=== PATIENT | female | born 1995 | race Caucasian/White ===

== ENCOUNTER 2023-05-13 08:49 | Outpatient (CLI) | payer BC, SELFPAY | END 2023-05-13 08:50 | disposition home or self-care (01) | LOC: NFLDREF 08:51 | PROVIDERS: Visit Provider Advanced Practice Midwife | DX: O26.899 Other specified pregnancy related conditions, unspecified trimester (principal); Z67.91 Unspecified blood type, Rh negative | CPT/HCPCS: 86592; 86850; J2791 ==

== ENCOUNTER 2023-06-22 16:58 | Outpatient (CLI) | payer BC, SELFPAY ==
[2023-06-22] VITALS (8 sets, daily range): BP systolic 120–142; BP diastolic 68–91; PULSE 70–96; TEMP 36.6
[2023-06-22 17:38] LABS: Appearance Urine Clear (Clear); Bilirubin Urine Negative (Negative); Blood Urine Negative (Negative); Color Urine Yellow (Yellow); Glucose Urine Negative (Negative); Ketones Urine Negative (Negative); Leukocyte Esterase Urine Negative (Negative); Nitrite Urine Negative (Negative); Protein Urine Negative (Negative); Urobilinogen Urine 0.2 (0.2-1.0)
[2023-06-22 18:16] LABS: Clue Cells No Clue Cells Seen (None Seen); Trichomonas No Trichomonas Seen (None Seen); Yeast No Yeast Seen (None Seen)
--- NOTE | 2023-06-22 19:22 | PC.OBNST ---
NST Note NST Note Start: 06/22/23 17:54 Freq: ONCE Status: Active Protocol: Document 06/22/23 19:18 MMT (Rec: 06/22/23 19:22 MMT [id number]) NST Note 2 Para (# of births) 1 EDC 08/06/23 Gestational Age In Weeks & Days 33 Weeks & 4 Days High Risk Factors History of Labor/ Delivery Patient Presented with Complaint(s) of Contractions/cramping,Vaginal bleeding Other Complaints Pt came in to the OB unit for complaints of mild cramping from [id number]. The cramping went away with drinking fluids . When the pt got into the shower, she noted a light stream of reddish/brown blood . She stated she did not have any bleeding since then. Reactive Yes Appropriate for Gestational Age Yes JESSIKA Serrano Date 06/22/23 Reactive Yes Appropriate for Gestational Age Yes JESSIKA Hansen RN Date 06/22/23 OB NST charge Yes Complete NST Note via Write Note Yes The provider's electronic signature indicates the NST is reactive/appropriate for gestational age. *Note to provider: If an addendum is required, open the patient's chart and click on the note under the Nurse/Allied Health tab.
--- NOTE | 2023-06-22 19:29 | PM.OBLDTN ---
OB - Triage/Final Diagnosis Visit Information Narrative: Jenny is a that presented to triage for concern for a scant trickle of blood that ran down her leg when she was showering. She has not seen any additional bleeding since she exited the shower. She feels it was certainly vaginal. She denies any leaking of fluid and endorses movement. She reports she did have intercourse about 3 days ago. She denies any cramping or contractions but was having some earlier. This resolved with oral hydration. Reason for evaluation: other (Bleeding) Evaluation Laboratory results: Laboratory Tests 06/22/23 06/22/23 Range/Units 17:56 17:00 Urine Color Yellow (Yellow) Urine Appearance Clear (Clear) Urine pH 7.0 (5.0-8.5) Ur Specific [place] 1.010 (1.000-1.030) Urine Protein Negative (Negative) Urine Glucose (UA) Negative (Negative) Urine Ketones Negative (Negative) Urine Blood Negative (Negative) Urine Nitrite Negative (Negative) Urine Bilirubin Negative (Negative) Urine Urobilinogen 0.2 (0.2-1.0) Ur Leukocyte Esterase Negative (Negative) Vaginal Trichomonas No Trichomonas Seen (None Seen) Vaginal Yeast No Yeast Seen (None Seen) Vaginal Clue Cells No Clue Cells Seen (None Seen) Vital signs: Vital Signs - 24 hr 06/22/23 17:08 06/22/23 17:23 06/22/23 17:30 Temperature 97.8 F Pulse Rate 82 96 Blood Pressure 142/91 H 132/88 06/22/23 17:39 06/22/23 17:54 06/22/23 18:09 Temperature Pulse Rate 76 71 77 Blood Pressure 124/77 133/68 06/22/23 18:25 06/22/23 18:38 Temperature Pulse Rate 73 70 Blood Pressure 124/76 120/73 Fetus (Single) Heart Rate Baseline: 145 Communications Programmer Variability: Moderate (6-25) Monitor Accelerations: Present Monitor Decelerations: None Final Diagnosis (1) Spotting complicating , third trimester: Status: Acute Problem details: No bleeding by swab or reported by patient at time of evaluation. Wet prep and UA/UC collected. Negative wet prep and UA. Offered vaginal exam and/or speculum exam. Patient declined at this time. Reviewed risk/benefits of exam. Follow-up in clinic for routine visit. Seeing Korina Beltre CNM .
== END 2023-06-22 19:04 | disposition home or self-care (01) ==
LOC: OB OUT 16:59 → OB 17:00
PROVIDERS: Visit Provider Advanced Practice Midwife
DX: O47.03 False labor before 37 completed weeks of gestation, third trimester (principal); Z3A.33 33 weeks gestation of pregnancy
CPT/HCPCS: 59025; 81003; 87210; G0463

== ENCOUNTER 2023-06-24 11:17 | Outpatient (CLI) | payer BC, SELFPAY | END 2023-06-24 11:18 | disposition home or self-care (01) | LOC: NFLDREF 06-28 06:38 | PROVIDERS: Visit Provider Advanced Practice Midwife | DX: Z83.438 Family history of other disorder of lipoprotein metabolism and other lipidemia (principal); Z34.93 Encounter for supervision of normal pregnancy, unspecified, third trimester | CPT/HCPCS: 80061 ==

== ENCOUNTER 2023-07-08 09:45 | Outpatient (CLI) | payer BC, SELFPAY | END 2023-07-08 09:46 | disposition home or self-care (01) | LOC: NFLDREF 07-12 07:06 | PROVIDERS: Visit Provider Advanced Practice Midwife | DX: Z34.93 Encounter for supervision of normal pregnancy, unspecified, third trimester (principal) | CPT/HCPCS: 87081; 87653 ==

== ENCOUNTER 2023-07-22 21:40 | Inpatient (IN) | payer BC, SELFPAY ==
[2023-07-22] VITALS (13 sets, daily range): BP systolic 131–150; BP diastolic 72–104; PULSE 64–117; RESP 16; TEMP 36.8; O2SAT 98; BMI 27.8
[2023-07-22 19:57] LABS: Hematocrit 34.5 % (33.0-51.0); Hemoglobin* 11.8 gm/dL (12.0-16.0); Mean Corpuscular HGB Conc 34 gm/dL (32-36); Mean Corpuscular Hemoglobin 32 pg (26-34); Mean Corpuscular Volume 92 fL (80-100); Platelet Count* 206 K/uL (140-440); Red Blood Count 3.74 m/uL (4.00-5.20)
[2023-07-22 20:11] LABS: Slide Review Reflex No
[2023-07-22 20:21] LABS: Total Protein Urine 15 mg/dL
[2023-07-22 20:21] LABS: Alanine Aminotransferase* 15 U/L (4-35); Aspartate Amino Transferase* 24 U/L (12-35); Blood Urea Nitrogen* 8 mg/dL (5-24); Creatinine* 0.5 mg/dL (0.5-1.5); Estimated Glomerular Filt Rate 129 ml/min
[2023-07-22 20:23] LABS: Creatinine Urine 48.3 mg/dL
--- NOTE | 2023-07-22 21:57 | P.LDBA_ITS ---
Subjective History of Present Illness Narrative: Jenny is a at 37 6/7 weeks gestation being admitted to Labor and Delivery for induction of labor for pre-eclampsia without severe features diagnosed in triage this evening. She was seen earlier today in clinic and had an elevated BP with a repeat that was normotensive, however borderline abnormal. It was recommended she follow-up in clinic on Wednesday of next week for a BP check and monitor at home for symptoms of pre-eclampsia. She denies any symptoms of this today including headache, epigastric pain, n/v, or blurred vision. She did not desire to come to clinic Wednesday but was open to monitoring her BP at home. She reported feeling unwell this evening and decided to take her blood pressure at home. Her initial reading was 154/90. She called and was recommended to come in for further evaluation but desired to stay home and recheck. After 1 hour, it remained elevated and she was advised to come to Labor and Delivery for evaluation. She does not desire an IOL ands hoping to avoid pitocin. Her full history and physical was dictated by MARIUM Snow on 07/15/2023. Please see this for details. Specific Issues/Plans (last delivery in 2012) Chris escobar of care at 25.6 wks H & P done 07/15/23 by Laxmi Leal CNM 1. Hx of labor at 34 weeks per pt, delivered at 38 weeks records reviewed, no mention of PTL 2. Cardiology consult this for shortness of breath and palpitations Per records Echo reassuring and normal. No further f/u recommended. 3. Hx of asthma no inhaler takes allergy med daily 4. Hx of eating disorder [id number] anorexia/bulimia was in treatment [facility] program not currently an issue per pt offer growth in 3rd trimester- pt declines at this time 5. Anxiety enc therapy or medications, pt declines med, considering therapy referral sent- started therapy 6. Hx depression with hospitalization after suicide attempt 2008 pt did not report, noted in records Discussed with pt reports result of situational, eating disorder and medication side effects. 7. RH- Rhogam 28 wks: received Rhogam PP: 8. Elevated BP without diagnosis of HTN Will monitor at home, return if elevated or has concerns Recommended BP check in clinic Wednesday OB Labs: ? Blood type: O-, antibody screen negative. ? Hgb: 12.8 ? Platelets: 247 ? Rubella: Immune ? Varicella: no results in records RPR: non-reactive ? HBsAg: non-reactive ? Hep C: negative HIV: negative ? UC: negative GC/Chlamydia: negative/negative ? Pap (01/04/23): NIL ? Genetic screening: declined ? IMAGING: ? 1st trimester: none in records Anatomy scan: Complete obstetrical ultrasound using realtime transabdominal scanning Maternal uterus appears normal Maternal ovaries were not visualized bilaterally Corresponding menstrual and sonographic dates Placenta is right lateral with an area on the posterior aspect suggestive of an accessory lobe Amniotic fluid assessment is : Normal No gross anomalies observed anomalies may be present but not detected The placenta shape is favored to be a variant of normal, could consider level 2 ultrasound for further evaluation if desired. ? Others: Level 2 with MFM 1. Horn intrauterine at 20w0d gestational age by LMP c/2 7 weeks US here for evaluation of anatomy 2. No anomalies commonly detected by ultrasound or soft markers of aneuploidy were identified in the detailed anatomic survey within the limits of ultrasound. 3. Growth parameters and estimated weight were consistent with established dates 4. The amniotic fluid volume appeared normal 5. On transabdominal imaging the cervix appears long and closed 6. Placenta is anterior but extends laterally to have one edge that is posterior. On still images, this give the impression of an accessory lobe but this is not present on video clips or real time imaging. No placental abnormality concerns are identified at this time. COVID: declined Flu: declined TDAP: declined 32wk Mental Health: 34wk Hgb: OB - Problem Based A/P Additional Plan (1) Encounter for induction of labor: Status: Acute (2) 37 weeks gestation of : Status: Acute (3) Preeclampsia: Problem details: without SF. Labs WNL, p/c ratio 0.3 Status: Acute (4) Anxiety: Status: Acute (5) Hx of major depression: Problem details: with suicide attempt in 2008 Status: Acute Plan ASSESSMENT:? 30 at 37 6/7 weeks gestation? complicated by:?hx of labor, SOB during with cardiology workup without concern, hx of asthma, hx of eating disorder, anxiety, hx of depression with hospitalization after suicide attempt in 2008, Rh neg Labor type: Induced? Category 1 FHR pattern.?? Labor complicated by: Pre-eclampsia without severe features GBS negative? ? PLAN:? 1. Routine intrapartum cares as ordered. Discussed IOL and methods. She desires to avoid pitocin. 2. Monitoring per policy, continuous ? 3. Candidate for analgesia of choice if desired. 4. Patient encouraged to reposition and ambulate to promote physiologic labor and .? 5. Continue to monitor BP per protocol. Labs WNL, pc ratio 0.3. Dr. Mcneill was made aware of patient being evaluated in triage with possible need for admission. 6. Anticipate ? Delivery/Labor/Induction Plan Plan: induction Induction method: per misoprostol protocol OB Exam Physical Exam Vital signs: Temp Pulse Resp BP Pulse Ox 98.2 F 104 H 16 139/97 H 98 07/22/23 19:09 07/22/23 20:47 07/22/23 19:09 07/22/23 20:47 07/22/23 19:14 Narrative: Vitals Reviewed Constitutional:? Alert and oriented x3 HEENT:? Normocephalic, atraumatic Neck:? Supple Lungs:? Clear to auscultation bilaterally Heart:? Regular rate and rhythm, no murmur, rub or gallop Abdomen:? Soft, nontender, and gravid. Vertex by Tesfaye's, confirmed with cervical exam. Extremities:? No edema or erythema Cervix: Deferred, done today in clinic NST: 140 bpm/moderate variability/15x15 accelerations/no decelerations /contractions occasionally
[2023-07-22] MEDS: miSOPROStoL 25 MCG/0.25 TABLET PO (22:37)
[2023-07-23] VITALS (38 sets, daily range): BP systolic 115–191; BP diastolic 58–106; PULSE 68–118; RESP 18; TEMP 36.6–37.2; O2SAT 92–100
[2023-07-23] MEDS: CALCIUM CARBONATE 500 MG CHEW PO (01:12)
[2023-07-23] MEDS: hydrOXYzine pamoate 25 MG CAPSULE 100 MG PO (02:27)
[2023-07-23] MEDS: miSOPROStoL 25 MCG/0.25 TABLET PO ×2 (02:27→06:22)
--- NOTE | 2023-07-23 08:20 | PM.OBPNL ---
Subjective Time Seen by Provider: 08:00 Date Seen: 07/23/23 Narrative: Jenny has received 2 doses of Cytotec. she is only feeling cramping and denies painful contractions at this time. We discussed ways to encourage labor including position changes and miles circuit. She will have an IV placed after breakfast as she plans for an epidural. Will plan to collect repeat labs and a type and screen with this IV start. We discussed options for continuing induction if her contractions space out, are unable to place more Cytotec or need a need induction technique. We discussed options of Cervidil, cook catheter, AROM and Pitocin and risks and benefits of each were discussed. We discussed buccal vs vaginal Cytotec for her next dose. she is undecided which she prefers but will think about it and decided. Discussed in depth advantages and disadvantages of each. Will reevaluate when her next dose is due. Declines cervical exam at this time. Objective Vital Signs: Last Vital Signs Temp 97.9 F 07/23/23 07:40 Pulse 72 07/23/23 07:40 Resp 16 07/22/23 22:43 BP 132/81 07/23/23 07:40 Pulse Ox 98 07/22/23 19:14 Contractions Monitor mode: External Contraction Frequency: 2-4 min Contraction pattern: Regular Contraction intensity: Mild Assessment Assessment: induction ongoing Heart Rate Baseline: 140 Group Home Variability: Moderate (6-25) Monitor Accelerations: Present Monitor Decelerations: None Plan Plan: ASSESSMENT:? 30 at 38 0/7 weeks gestation? complicated by:?hx of labor, SOB during with cardiology workup without concern, hx of asthma, hx of eating disorder, anxiety, hx of depression with hospitalization after suicide attempt in 2008, Rh neg Labor type: Induced? Category 1 FHR pattern.?? Labor complicated by: Pre-eclampsia without severe features GBS negative? ? PLAN:? 1. Routine intrapartum cares as ordered. Discussed IOL and methods. She desires to avoid Pitocin. Will continue with Cytotec induction. 2. Monitoring per policy, continuous ? 3. Candidate for analgesia of choice if desired. Planning an epidural. 4. Patient encouraged to reposition and ambulate to promote physiologic labor and .? 5. Continue to monitor BP per protocol. Labs WNL. 6. Anticipate ?
[2023-07-23] MEDS: LACTATED RINGERS 1000 ML 1,000 ML IV (09:43)
[2023-07-23 09:50] LABS: Basophils Percent Auto 0.1 % (0.0-3.0); Eosinophils Percent Auto 1.4 % (0.0-7.0); Hematocrit 34.7 % (33.0-51.0); Immature Granulocytes Pct Auto 0.5 %; Lymphocytes Percent Auto 14.5 % (20-44); Mean Corpuscular HGB Conc 35 gm/dL (32-36); Mean Corpuscular Hemoglobin 32 pg (26-34); Mean Corpuscular Volume 92 fL (80-100); Monocytes Percent Auto 6.2 % (0.0-11.0); Neutrophils Percent Auto 77.3 % (42.0-72.0); Platelet Count* 209 K/uL (140-440); Red Blood Count 3.76 m/uL (4.00-5.20); White Blood Count* 11.03 K/uL (4.50-11.00)
[2023-07-23 09:54] LABS: Slide Review Reflex No
[2023-07-23] MEDS: fentaNYL 100 MCG/2 ML inj 50 MCG IVP (11:01)
[2023-07-23] MEDS: LACTATED RINGERS 1000 ML 1,000 ML 700 ML IV (11:06)
[2023-07-23] MEDS: ROPIVACAINE 0.2% 100 ml 100 ML 12 MG EPIDURAL (11:25)
[2023-07-23] MEDS: BUPIVACAINE 0.25% PF 10 ML 10 ML ML EPIDURAL (11:29)
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
--- NOTE | 2023-07-23 12:56 | W.PM.VAGDE_ITS ---
OB Procedure Vag Delivery Mother Details Mother Details: The patient is a 28 year-old, 2, Para 1, admitted on 07/22/23 at 38.0 Days gestation for IOL for Preeclampsia without severe features. She was given 3 doses of Cytotec. She had SROM which significantly increased her pain with contractions. Shortly after SROM she requested an epidural. She used hydrotherapy while waiting for IV fluid infusion for epidural placement. Her cervical exam was 3cm/90%/-1 immediately before epidural placement. After p lacement she was immediately uncomfortable and requested a cervical exam. She was then found to be complete and +2-3 station. She was prepared for pushing and began pushing shortly after this exam. She pushed effectively. : 2 Para: 2 Weeks Gestation: 38.0 Admission Date: 07/22/23 Additional Details Amniotic Membrane Status: SROM Amniotic Membrane Rupture Date: 07/23/23 Amniotic Membrane Rupture Time: 09:20 Amniotic Membrane Fluid Description: Clear Analgesia/Anesthesia Type: Epidural Waterbirth: No Pitcoin: No (declined AMTSL, expectant management, will consider if bleeding increases ) Intrapartal Events: Precipitous Labor <3 Hrs Induction Method: per misoprostol protocol Labor Onset: 09:20 (with SROM) Complete: 11:40 Pushin:48 Heart: heart tones during second stage were category 2. There were repetitive variable decelerations with contractions to the 100-70's. Maintained good variability and good return to baseline. Did try positions changes with minimal change. Delivery Details Delivery Date: 07/23/23 Delivery Time: 12:03 Route of delivery: Infant Gender: Male Viability: Alive; Heart Rate Present Position at Delivery: OA Delivery Details: Patient was admitted for IOL for preeclampsia without severe features and progressed with Cytotec induction and SROM. SROM noted at 0920 with clear fluid. Patient was complete at 1140 and pushing at 1148. of a viable male at 1203 in right tilt in the bed. Vertex delivered OA. No nuchal cord or shoulder but umbilical cord was in the babies hands at time of delivery. Body delivered easily and without incident. FOB helped delivery baby with hand over hand technique passed to mothers abdomen with a vigorous cry. Cord was clamped and cut at > 5 minutes. APGARS were 8 at one minute and 9 at five minutes respectively. Mouth was bulb suctioned. Intact placenta with a 3 vessel cord delivered spontaneously at 1213. Fundus firm. Superficial periurethral and perineal lacerations were identified and not requiring repair. QBL 200 cc. Mother and baby stable; mother plans to breastfeed. Infant weight 3015g.? 1 Minute Interval Total Score: 8 5 Minute Interval Total Score: 9 Additional Details Shoulder Dystocia: No Placenta Delivery Time: 12:13 Placental Delivery Description: Spontaneous Procedure Done: Global Blood Loss: 200 Laceration: Superficial (periurethral and perineal ) Episiotomy Description: None Blood Loss Measurement Type: QBL Bakri Used: No Sponge/Need Count Correct: Yes Cord Vessel Description: 3 Vessels (cord in hands at delivery ) Event Summary Status: Mother and infant were stable after delivery. Disposition: floor
[2023-07-23] MEDS: IBUPROFEN 600 MG TABLET PO ×2 (16:04→22:08)
[2023-07-23] MEDS: ACETAMINOPHEN 500 MG TABLET 1000 MG PO (19:39)
[2023-07-24] VITALS (7 sets, daily range): BP systolic 116–136; BP diastolic 72–92; PULSE 63–91; RESP 16–18; TEMP 36.4–37.1; O2SAT 96–97
[2023-07-24] MEDS: ACETAMINOPHEN 500 MG TABLET 1000 MG PO ×4 (01:31→23:09)
[2023-07-24] MEDS: IBUPROFEN 600 MG TABLET PO ×3 (04:09→20:35)
[2023-07-24 07:17] LABS: Hemoglobin* 10.6 gm/dL (12.0-16.0)
[2023-07-24] MEDS: DOCUSATE SODIUM 100 MG CAPSULE PO (07:36)
--- NOTE | 2023-07-24 09:29 | P.OBPN_ITS ---
OB - PN:Subj Subjective Time Seen by Provider: 09:00 Date Seen: 07/24/23 Interval history: pt seen in routine rounds. Is pumping and bottle feeding, supplementing with donor milk. Initial high bp after delivery 167/86, repeat 146/76. Overnight bp's 140/80-90 but this morning last two 125/76, 123/74. Has not received any bp meds. Reports voiding, ambulating, tolerating orals. No concerns. Patient comments OB post-: no complaints OB - PN: Obj Exam Physical Exam: Vital signs: Temp Pulse Resp BP Pulse Ox O2 Del Method 97.7 F 66 16 126/80 97 Room Air 07/24/23 07:38 07/24/23 07:38 07/24/23 07:38 07/24/23 07:38 07/24/23 07:38 07/24/23 07:38 Constitutional: Constitutional: no acute distress and cooperative Routine Abdominal Exam: Fundus: Present firm (below umbilicus) OB - PN: Obj Data Labs Labs: Laboratory Results - last 24 hr 07/23/23 07/24/23 09:36 06:55 WBC 11.03 H RBC 3.76 L Hgb 12.0 10.6 L Hct 34.7 MCV 92 MCH 32 MCHC 35 RDW Coeff of Jessica 13.0 Plt Count 209 Neut % (Auto) 77.3 H Lymph % (Auto) 14.5 L [place] % (Auto) 6.2 Eos % (Auto) 1.4 Baso % (Auto) 0.1 Neut # (Auto) 8.50 H Lymph # (Auto) 1.60 [place] # (Auto) 0.70 Eos # (Auto) 0.20 Baso # (Auto) 0.00 Abs Immat Gran (auto) 0.10 Imm/Tot Granulo (auto) 0.5 Blood Type O Negative Antibody Screen POSITIVE OB - PN: A/P Delivery Assessment and Plan (1) Encounter for induction of labor: Status: Acute (2) 37 weeks gestation of : Status: Acute (3) Preeclampsia: Problem details: without SF. Labs WNL, p/c ratio 0.3 Status: Acute Assessment and Plan: one bp in severe range after delivery, repeat below. preeclamptic labs wnl. discussed with pt, will monitor bp and if recurrently >/=140/90, will initial oral meds. Plan monitor for now. continue routine care otherwise (4) Anxiety: Status: Acute (5) Hx of major depression: Problem details: with suicide attempt in 2008 Status: Acute
--- NOTE | 2023-07-24 10:22 | P.OBPN_ITS ---
OB - PN:Subj Subjective Time Seen by Provider: 09:45 Date Seen: 07/24/23 Interval history: pt seen in routine rounds. Is pumping and bottle feeding, supplementing with donor milk. Initial high bp after delivery 167/86, repeat 146/76. Overnight bp's 140/80-90 but this morning last two 125/76, 123/74. Has not received any bp meds. Reports voiding, ambulating, tolerating orals. No concerns. Patient comments OB post-: no complaints, pain well controlled, tolerating diet and flatus present infant status: (working on latching) and doing well Lynndyl feeding status: exclusively Narrative: The patient feels well.? The pain is well controlled with current medications.? She has no new complaints.? Urinary output is adequate and she is voiding without difficulty.? Has a good appetite, is tolerating a general diet, is passing flatus, and has not had a bowel movement.? Has small amount of rubra lochia.? She is ambulating well.?Blood pressures have been 116-126/70-80's this am but did have elevated BPs of 140-150's yesterday evening. Denies symptoms. Initially wanted to discharged after 24 hours but encouraged her to stay due to these higher blood pressures and an increased risk of readmission. She is also working on latching as baby is struggling. She is agreeable to staying. Will c onsider adding Nifedipine if she has another elevated blood pressure. She will work with the nurses on latching baby. OB - PN: Obj Exam Physical Exam: Vital signs: Temp Pulse Resp BP Pulse Ox O2 Del Method 97.7 F 66 16 126/80 97 Room Air 07/24/23 07:38 07/24/23 07:38 07/24/23 07:38 07/24/23 07:38 07/24/23 07:38 07/24/23 07:38 Narrative: GENERAL APPEARANCE:? normal affect, alert, no distress? MOOD:? appropriate? CHEST:? clear to auscultation and percussion? HEART:? regular rate and rhythm? ABDOMEN:? soft, non-tender the uterine fundus is U/2 and is appropriate for the stage of recovery.? PERINEUM:? mild edema of the perineum, there is a intact perineum that is healing well.? EXTREMITIES:? normal and no edema? OB - PN: Obj Data Labs Labs: Laboratory Results - last 24 hr 07/23/23 07/23/23 07/24/23 06:55 09:36 06:55 Hgb 10.6 L Blood Type O Negative Antibody Screen POSITIVE Screen Negative OB - PN: A/P Delivery Assessment and Plan (1) Preeclampsia: Problem details: without SF. Labs WNL, p/c ratio 0.3 Status: Acute (2) Anxiety: Status: Acute (3) Hx of major depression: Problem details: with suicide attempt in 2008 Status: Acute (4) Lactating mother: Status: Acute (5) care following vaginal delivery: Status: Acute Plan day: 1 Plan: routine care Comments: Anticipate discharge home tomorrow.
[2023-07-24 11:20] LABS: Hematocrit 32.9 % (33.0-51.0); Hemoglobin* 11.2 gm/dL (12.0-16.0); Mean Corpuscular HGB Conc 34 gm/dL (32-36); Mean Corpuscular Hemoglobin 32 pg (26-34); Mean Corpuscular Volume 93 fL (80-100); Platelet Count* 213 K/uL (140-440); Red Blood Count 3.53 m/uL (4.00-5.20); White Blood Count* 15.36 K/uL (4.50-11.00)
[2023-07-24 11:30] LABS: Slide Review Reflex No
[2023-07-24 11:46] LABS: Alanine Aminotransferase* 15 U/L (4-35); Aspartate Amino Transferase* 26 U/L (12-35); Blood Urea Nitrogen* 12 mg/dL (5-24); Creatinine* 0.6 mg/dL (0.5-1.5); Est. Creatinine Clearance* 123.37; Estimated Glomerular Filt Rate 124 ml/min
[2023-07-24] MEDS: LANOLIN CREAM 1 APPLIC TOPICAL (13:35)
--- NOTE | 2023-07-24 15:23 | PM.ANPOST ---
Post Anesthesia Note Post Anesthesia Note Patient seen: Inpatient Respiratory Status: adequate Cardiovascular Status: adequate Mental Status: baseline Pain: adequate Temp: baseline Anesthetic awareness: N/A Complications: none Follow care: none
[2023-07-24] MEDS: polyethylene glycoL 3350 17 GM PACK PO (20:33)
[2023-07-24 23:24] LABS: Rapid Plasma Reagin (RPR) Non Reactive (Non Reactive)
[2023-07-25] MEDS: IBUPROFEN 600 MG TABLET PO ×2 (05:06→12:18)
[2023-07-25 05:25] VITALS: BP 149/91; PULSE 60; RESP 18; TEMP 36.8
[2023-07-25 05:50] VITALS: BP 118/72
--- NOTE | 2023-07-25 08:08 | P.DS_ITS ---
DS: Providers Provider Date Seen: 07/25/23 Date of admission: 07/22/23 21:40 Primary care physician: Not a Local Provider Admitting Clinician: Madison Perdomo CNM Attending Physician on discharge: Madison Perdomo CNM Date of Discharge: 07/25/23 DS: Diagnosis Discharge Diagnosis (1) care following vaginal delivery: Status: Acute (2) Lactating mother: Status: Acute (3) Preeclampsia: Status: Acute Problem details: without SF. Labs WNL, p/c ratio 0.3 (4) Anxiety: Status: Acute Exam Narrative: Exam Narrative: GENERAL APPEARANCE:? normal affect, alert, no distress? MOOD:? appropriate? CHEST:? clear to auscultation and percussion? HEART:? regular rate and rhythm? ABDOMEN:? soft, non-tender the uterine fundus is U/3 and is appropriate for the stage of recovery.? PERINEUM:? mild edema of the perineum, there is a superficial laceration that is healing well.? EXTREMITIES:? normal and no edema? Const: Vital Signs, click to edit/add: Vital Signs - 24 hr 07/24/23 12:24 07/24/23 17:12 07/24/23 20:19 Temperature 98.7 F 98.0 F 98.3 F Pulse Rate [Pulse Oximeter] 74 63 85 Respiratory Rate 16 18 18 Blood Pressure [Ri ght Arm] 135/92 H 128/83 136/81 Pulse Oximetry 97 97 97 Oxygen Delivery Me thod Room Air Room Air Room Air 07/24/23 23:03 07/25/23 05:25 07/25/23 05:50 Temperature 98.1 F 98.3 F Pulse Rate [Pulse Oximeter] 65 60 Respiratory Rate 18 18 Blood Pressure [Ri ght Arm] 131/75 149/91 H 118/72 Pulse Oximetry 97 Oxygen Delivery Me thod Room Air Room Air Documenting provider has reviewed patient's vital signs: yes OB - DS: Summary Hospital Course Hospital Course: The patient is a 28 year old G 2 P 2 at 38.0 weeks gestation that was admitted to the Center on 07/22/23 for IOL for preeclampsia without severe features. She had an uncomplicated vaginal delivery. She delivered a viable male . She is breast feeding and it is going much better than yesterday.She is using a shield and planning to see to try to wean off of it. the patient has done well. Her pain is well controlled with current medications.?She only complains of some back pain lingering from labor and after her epidural. She has no new complaints.? Urinary output is adequate and she is voiding without difficulty.? Has a good appetite, is tolerating a general diet, is passing flatus, and has had a bowel movement.? Has scant amount of rubra lochia.? She is ambulating well. Blood pressures have remained stable since delivery. She will get a blood pressure cuff to use at home and precautions were reviewed. She will be seen at 1 week for a blood pressure check. She is unsure what she is planning for control. Peripartum Data Infant delivery method: Vaginal Laceration description: Superficial Episiotomy description: None complications: none Infant Gender: Male Discharge Plan: Home Status at Discharge Functional status at discharge: independent ambulation Overall status at discharge: patient is progressing back to baseline Time Spent with Patient Time attestation: Total time spent providing and/or coordinating discharge services: Discharge Plan Discharge Disposition: Home, Self-Care Date of Admission: 07/22/23 21:40 Attending Provider on Discharge: Korina Beltre Primary Care Provider: Provider,Not a Local Condition: Stable Anticipated Discharge Date/Time: 07/25/23 10:00 Discharge Medications: New docusate sodium 100 mg Capsule 100 mg PO DAILY Qty: 90 0RF Rx Instructions: Take 1-2 tablets daily as needed for constipation. ibuprofen 600 mg Tablet 600 mg PO Q6H PRNQty: 30 0RF Continued Classic 28 mg iron- 800 mcg tablet 1 tab PO DAILY loratadine 10 mg tablet 10 mg PO QDAY ferrous sulfate 325 mg (65 mg iron) tablet 325 mg PO Q OTHER DAY Qty: 30 2RF magnesium citrate 125 mg capsule 250 mg PO DAILY Discontinued [place] Oil 1,000 mg capsule 1 cap PO DAILY Rx Instructions: administer with a meal Discharge Orders: Discharge Order (Routine); Ordered 07/25/23 Ordered By: Korina Beltre Patient Education: OB Vaginal/Breast Feeding Additional Instructions: Discharge instructions were reviewed with the patient including signs and symptoms of infection and home going medications.? Lifting Restrictions: 20 pounds for 6? weeks? ?? Do not drive while taking narcotic pain meds.? Off Work or School for 6 weeks.? ?? Symptoms to report to doctor:? -Bleeding that saturates more than one pad per hour? -Passing clots larger than the size of a golf ball? -Pain not relieved by prescribed medication? -Fever above 100.4 degrees Fahrenheit? -A foul vaginal odor? -Difficulty in emotions, mood and functions? -Thoughts of hurting yourself and/or ? -Painful, reddened area in your breast? -Any drainage, redness or tenderness in your IV/epidural site? -Severe headache that doesn't improve after taking medications? -Changes in vision, including temporary loss of vision, blurred vision, and/or light sensitivity? -Upper abdominal pain (usually under ribs on the right side)? -Decrease in urination or painful, frequent urinating? -Chest pain? -Shortness of breath? -Tenderness or pain with redness and/swelling in the calf(s) of y our leg? ?? Follow up visits:?? 1. 1 week visit:? blood pressure check.? 2. 2-week visit: discuss feeding/care concerns, review control options and screen for anxiety/depression.? 3. 6-week visit for an annual exam and contraception.? ?? consultation services are available to all mothers and babies for the first year after delivery.? To make an appointment, please call [phone].? Activity Level: Activity as Tolerated Discharge Diet: Regular Follow Up Appointments: Provider,Not a Local [Primary Care Provider] - [facility] [Provider Group] Forms: [employer] Info Instructions
[2023-07-25] MEDS: ACETAMINOPHEN 500 MG TABLET 1000 MG PO (09:03)
[2023-07-25] MEDS: DOCUSATE SODIUM 100 MG CAPSULE PO (09:05)
[2023-07-25 09:07] VITALS: BP 125/84; PULSE 70; RESP 16; TEMP 36.9; O2SAT 98
== END 2023-07-25 12:55 | disposition home or self-care (01) | DRG 560 ==
LOC: OB OUT 07-23 11:20 → OB 07-23 11:20
PROVIDERS: Advanced Practice Midwife; Admitting Provider Advanced Practice Midwife; Visit Provider Advanced Practice Midwife
DX: O14.04 Mild to moderate pre-eclampsia, complicating childbirth (principal); O62.3 Precipitate labor; Z3A.37 37 weeks gestation of pregnancy; O99.344 Other mental disorders complicating childbirth; F41.8 Other specified anxiety disorders; Z91.51 Personal history of suicidal behavior; Z86.59 Personal history of other mental and behavioral disorders; Z37.0 Single live birth
CPT/HCPCS: 01967; 36415; 59200; 82565; 82570; 84156; 84450; 84460; 84520; 85018; 85025; 85027; 85461; 86592; 86850; 86870; 86880; 86900; 86901; G0463; A9270; J0665; J2371; J2791; J2795; J3010; J7120

== ENCOUNTER 2023-07-27 19:45 | Emergency (ER) | payer BC, SELFPAY ==
[2023-07-27 20:01] VITALS: BP 153/96; PULSE 82; RESP 16; TEMP 36.6; O2SAT 98; BMI 25.8
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
[2023-07-27 20:15] LABS: Hematocrit 33.4 % (33.0-51.0); Hemoglobin* 11.3 gm/dL (12.0-16.0); Mean Corpuscular HGB Conc 34 gm/dL (32-36); Mean Corpuscular Hemoglobin 32 pg (26-34); Mean Corpuscular Volume 93 fL (80-100); Platelet Count* 244 K/uL (140-440); Red Blood Count 3.59 m/uL (4.00-5.20); White Blood Count* 12.02 K/uL (4.50-11.00)
[2023-07-27 20:21] LABS: Slide Review Reflex No
[2023-07-27 20:31] LABS: Bilirubin Urine Negative (Negative); Blood Urine 3+ (Negative); Color Urine Yellow (Yellow); Glucose Urine Negative (Negative); Ketones Urine Negative (Negative); Leukocyte Esterase Urine 2+ (Negative); Nitrite Urine Negative (Negative); Protein Urine Negative (Negative); Urobilinogen Urine 0.2 (0.2-1.0)
[2023-07-27 20:32] LABS: Alanine Aminotransferase* 55 U/L (4-35); Aspartate Amino Transferase* 68 U/L (12-35); Blood Urea Nitrogen* 15 mg/dL (5-24); Creatinine* 0.6 mg/dL (0.5-1.5); Est. Creatinine Clearance* 123.37; Estimated Glomerular Filt Rate 124 ml/min
[2023-07-27 20:34] LABS: Appearance Urine Clear (Clear); Bacteria Urine Few; Squamous Epithelial Cell Urine Moderate (None-Few)
[2023-07-27 21:21] VITALS: BP 144/96; PULSE 76; RESP 16; O2SAT 98
[2023-07-27] MEDS: IBUPROFEN 200 MG TABLET 600 MG PO (21:26)
[2023-07-27] MEDS: NIFEdipine 30 MG TAB.ER.24 PO (21:59)
== END 2023-07-27 22:04 | disposition home or self-care (01) ==
PROVIDERS: Emergency Provider Emergency Medicine Emergency Medical Services
DX: O16.5 Unspecified maternal hypertension, complicating the puerperium (principal)
CPT/HCPCS: 36415; 81001; 82565; 84450; 84460; 84520; 85027; 87086; 99283; 99284; A9270

== ENCOUNTER 2023-07-28 09:09 | Outpatient (CLI) | payer BC, SELFPAY | END 2023-07-28 09:10 | disposition home or self-care (01) | PROVIDERS: Visit Provider Obstetrics & Gynecology | DX: O16.5 Unspecified maternal hypertension, complicating the puerperium (principal) | CPT/HCPCS: 82565; 84450; 84460; 84520 ==

== ENCOUNTER 2023-07-29 11:26 | Emergency (ER) | payer BC, SELFPAY ==
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
[2023-07-29 11:31] VITALS: BP 136/78; PULSE 102; RESP 16; TEMP 36.4; O2SAT 98; BMI 25.8
[2023-07-29 12:28] LABS: Basophils Percent Auto 0.1 % (0.0-3.0); Eosinophils Percent Auto 0.9 % (0.0-7.0); Hematocrit 38.8 % (33.0-51.0); Hemoglobin* 13.3 gm/dL (12.0-16.0); Immature Granulocytes Pct Auto 0.2 %; Lymphocytes Percent Auto 11.8 % (20-44); Mean Corpuscular HGB Conc 34 gm/dL (32-36); Mean Corpuscular Hemoglobin 31 pg (26-34); Mean Corpuscular Volume 92 fL (80-100); Monocytes Percent Auto 5.8 % (0.0-11.0); Neutrophils Percent Auto 81.2 % (42.0-72.0); Platelet Count* 323 K/uL (140-440); RDW Coefficient of Variation % 12.4 % (11.5-15.5); Red Blood Count 4.24 m/uL (4.00-5.20); White Blood Count* 13.73 K/uL (4.50-11.00)
[2023-07-29 12:29] LABS: Slide Review Reflex No
[2023-07-29] MEDS: KETOROLAC 15 MG/ML inj IVP (12:35)
[2023-07-29] MEDS: 0.9 % SODIUM CHLORIDE 1000 ml 1,000 ML IV (12:35)
[2023-07-29] MEDS: dexAMETHasone 10 MG/ML inj IVP (12:36)
[2023-07-29 12:43] LABS: Albumin* 4.4 g/dL (3.3-5.0); Chloride* 105 mmol/L (96-114); Potassium* 4.2 mmol/L (3.6-5.1); Sodium* 138 mmol/L (135-149)
[2023-07-29 12:45] LABS: Creatinine* 0.6 mg/dL (0.5-1.5); Est. Creatinine Clearance* 123.37; Estimated Glomerular Filt Rate 124 ml/min
[2023-07-29 12:46] LABS: Alanine Aminotransferase* 50 U/L (4-35); Alkaline Phosphatase* 115 U/L (40-150); Anion Gap 11 mEq/L (7-15); Aspartate Amino Transferase* 41 U/L (12-35); Bilirubin Total* 0.5 mg/dL (0.1-1.5); Blood Urea Nitrogen* 12 mg/dL (5-24); Carbon Dioxide* 22 mmol/L (20-32); Glucose* 90 mg/dL (60-115); Total Protein* 8.1 g/dL (6.0-8.3)
[2023-07-29 12:47] LABS: Calcium* 10.3 mg/dL (8.4-10.6)
[2023-07-29 12:48] LABS: D Dimer Quantitative* 1.22 ug/ml (0.00-0.50)
[2023-07-29 12:52] LABS: Appearance Urine Clear (Clear); Bilirubin Urine Negative (Negative); Blood Urine 2+ (Negative); Color Urine Yellow (Yellow); Glucose Urine Negative (Negative); Ketones Urine Negative (Negative); Leukocyte Esterase Urine Trace (Negative); Nitrite Urine Negative (Negative); Protein Urine Negative (Negative); Specific Gravity Urine <= 1.005 (1.000-1.030); Urobilinogen Urine 0.2 (0.2-1.0); pH Urine 6.5 (5.0-8.5)
[2023-07-29 12:55] LABS: RBC Urine 0-2 (0-2); Squamous Epithelial Cell Urine Few (None-Few); WBC Urine 0-2 (0-5)
[2023-07-29 12:57] LABS: Total Protein Urine Random* 16 mg/dL
[2023-07-29 13:05] VITALS: BP 136/78
== END 2023-07-29 14:04 | disposition home or self-care (01) ==
PROVIDERS: Emergency Provider Family Medicine
DX: F41.9 Anxiety disorder, unspecified (principal); O16.5 Unspecified maternal hypertension, complicating the puerperium
CPT/HCPCS: 36415; 80048; 80076; 81001; 84156; 85025; 85379; 87086; 96374; 96375; 99283; 99284; J1100; J1885; J7030

== ENCOUNTER 2023-08-04 15:37 | Day surgery (SDC) | payer BC, SELFPAY ==
[2023-08-04] VITALS (7 sets, daily range): BP systolic 125–129; BP diastolic 78–88; PULSE 60–76; RESP 16–18; TEMP 36.6–36.9; O2SAT 97–100; BMI 24.1
--- NOTE | 2023-08-04 18:05 | W.PM.H&PU ---
History & Physical Update History & Physical Update H&P Reviewed and patient assessed: No changes noted H&P Updates: Jenny is seen preoperatively prior to planned hysteroscopy, dilation and curettage (TruClear versus suction) proceed as indicated. She is status post consultation and H&P in the clinic today with Dr. Costa. No interval update. We reviewed planned procedure in detail. Discussed risks of bleeding, infection, damage to surrounding structures (perforation) and uterine scarring. Her only medical comorbidity is preeclampsia without severe features and a remote history of asthma due to allergies (no recent need for a rescue inhaler). On exam, she does have significant tenderness to palpation of the fundus. No rebound or guarding. Denies any fevers/chills, abnormal or malodorous vaginal discharge, heavy vaginal bleeding. Vital signs reveal she is hemodynamically stable, afebrile and has no leukocytosis. Plan to proceed with the above-stated procedure. Given potential for infection retained products and uterine tenderness, we just risks and benefits of a oral course of Augmentin. Jenny notes that she has been exhausted by her complicated postoperative course, would desire any intervention to potentially reduce the risk of infection and return to care. As such, plan to proceed with 7 day course of Augmentin b.i.d.. Plan 2 week follow-up visit. Postoperative expectations and precautions were reviewed. Anticipate dismissal to home following postop recovery tonight. All questions answered.
--- NOTE | 2023-08-04 18:11 | W.PM.GYNPROC ---
Procedure Note Time Seen by Provider: 19:43 Date of procedure: 08/04/23 Will [facility] bill your pro fee for this procedure?: Yes Pre-op diagnosis: Suspected retained products of conception Fundal tenderness Post-op diagnosis: Same as above Procedure: Hysteroscopy, dilation and curettage with Truclear Anesthesia: MAC and local Complications: None Surgeon: Festus Maurer MD Estimated blood loss (mL): 25 IV fluids (mL): 700 Urine Output (mL): 100 Pathology: specimen obtained, sent to pathology Condition: stable Disposition: same day Findings: Normal external genital exam Cervix is pink and without lesion, about 7mm dilated Thickened endometrium at the right uterine wall, greatest at fundus Otherwise unremarkable appearing endometrium Procedure Description: Procedure in detail: Patient was taken to the operating room with IV running. She was positioned in dorsal lithotomy position with her legs fully supported in Yellofin stirrups. Monitored anesthesia care was administered. She received 200mg of doxycycline in pre-op prophylaxis. She was prepped and draped in the usual sterile fashion. Exam under anesthesia was performed for the above-noted findings. Speculum was inserted. Cervix visualized and grasped along the anterior lip with a single-tooth tenaculum. Cervix was already dilated, where size 6 hollis dilator could be easily passed to accommodate the TRUCLEAR hysteroscope. This was assembled with saline inflow and outflow in place. The line was flushed of bubbles. The hysteroscope was advanced through the cervix into the endometrial cavity for the above noted findings. It was challenging to maintain intrauterine pressure due to cervical dilation, thus a ring forceps was applied across the cervix to aid with distension. Characteristic images were obtained. The tissue morcellator was then inserted through the operating channel. Window lock was performed. Under direct visualization, the abnormal tissue at the right fundal cavity was resected with no significant return of blood. All areas of thickened endometrial apperance were circumferentially curetted with the tissue morcellator. Normal cavity was restored at completion of resection, photos taken. The hysteroscope and morcellator were then removed from the uterus. Ring forceps and tenaculum was removed from the anterior lip of cervix. Hemostasis was noted with gentle pressure and silver nitrate. Patient tolerated procedure well. She was taken to recovery area in stable condition. Surgical debrief performed with the above noted details. Fluid deficit was 1060mL, EBL 25mL, IVF 700mL. Specimen is endometrial curettings for pathologic evaluation.
[2023-08-04] MEDS: LACTATED RINGERS 1000 ML 1,000 ML 75 ML IV (18:41)
[2023-08-04] MEDS: BUPIVACAINE 0.5% 30 ML 20 ML INJECTION (19:04)
[2023-08-04] MEDS: DOXYCYCLINE HYCLATE 200 MG in 0.9 % SODIUM CHLORIDE Mini-bag 100 ML 100 MG IVPB (19:16)
[2023-08-04] MEDS: SILVER NITRATE APPLICATOR 1 EACH STICK..EA. TOPICAL (19:25)
--- NOTE | 2023-08-04 19:44 | PC.NURSE ---
shift note: iV started by anesthesia in rt hand; #20. LS Clr. BS active x4. pt states locha serosa and minimal discharge on pad. Last void @ 1750. Pt prepped for surgery
--- NOTE | 2023-08-04 19:50 | P.ANES_ITS ---
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
[2023-08-04] MEDS: IBUPROFEN 600 MG TABLET PO (20:40)
--- NOTE | 2023-08-04 22:39 | PC.NURSE ---
Pt discharged with spouse at 2134 this evening. Pt denied nausea before discharge and also denied pain. She requested PRN Ibuprofen for cramping after D&C procedure performed. Pt was tolerating food and po fluids. PIV removed from R hand prior to discharge with catheter noted to be intact. Pt voided 175 mL of pale yellow urine prior to discharge. No vomiting noted after surgery. Discharge instructions reviewed with pt. Pt stated she had no questions when asked. Prescriptions transmitted to [facility] in [place].
== END 2023-08-04 21:34 | disposition home or self-care (01) ==
LOC: OR 15:37 → MEDSURG 15:39
PROVIDERS: Visit Provider Obstetrics & Gynecology
PROC: 0UDB8ZZ Extraction of Endometrium, Via Natural or Artificial Opening Endoscopic (ICD-10-PCS; CPT 58558; principal; 2023-08-04 17:00)
DX: R93.89 Abnormal findings on diagnostic imaging of other specified body structures (principal)
CPT/HCPCS: 58558; 01965; 76830; 88305; 88307; 99140; A9270; J0665; J1100; J1885; J2405; J2704; J3010; J7120

== ENCOUNTER 2024-09-28 10:07 | Outpatient (CLI) | payer BC, SELFPAY ==
--- NOTE | 2024-09-28 10:15 | CRLHL7_ITS ---
For Patients: As a result of the Cures Act, medical imaging exams and procedure reports are released immediately into your electronic medical record. You may view this report before your referring provider. If you have questions, please contact your health care provider. OB ULTRASOUND INDICATION: Dating and viability. TECHNIQUE: Real time grayscale imaging of the fetus was performed. Transvaginal. LMP: 08/02/2024. KRISTINA by LMP: 05/09/2025. GA: 8 w, 1 d. Previous US: No. CRL: 2.0 cm. 8 w 4 d. KRISTIAN: 05/06/2025. FHR: 167 BPM. Gestational sac: 3.8 cm. Appears within normal limits. Yolk sac: 4.3 mm. Appears within normal limits. Right ovary: Within normal limits. 3.4 x 2.3 x 2.7 cm. CL. Left ovary: Within normal limits. 2.1 x 2.0 x 2.0 cm. IMPRESSION: Single living intrauterine measures 8 weeks 4 days and sonographic due date 05/06/2025. Yuval Orozco M.D. Diagnostic Radiologist [email or web address] JAK/julianna levine/Dictated by: Yuval Orozco MD @ 09/28/2024 11:10:00 AM (Electronically Signed)
== END 2024-09-28 10:08 | disposition home or self-care (01) ==
LOC: US 10:08
PROVIDERS: Visit Provider Midwife
DX: Z34.91 Encounter for supervision of normal pregnancy, unspecified, first trimester (principal); Z3A.08 8 weeks gestation of pregnancy
CPT/HCPCS: 76817; 82565; 82570; 83021; 84156; 84450; 84460; 84520; 86592; 86703; 86704; 86706; 86762; 86787; 86803; 86850; 86900; 86901; 87086; 87340; 87491; 87591

== ENCOUNTER 2024-12-21 12:54 | Outpatient (CLI) | payer BC, SELFPAY ==
--- NOTE | 2024-12-21 13:00 | CRLHL7_ITS ---
For Patients: As a result of the Century Cures Act, medical imaging exams and procedure reports are released immediately into your electronic medical record. You may view this report before your referring provider. If you have questions, please contact your health care provider. OB ULTRASOUND SURVEY LMP: 08/02/2024. KRISTIAN by LMP: 05/09/2025. GA: 20 w, 1 d. INDICATION: Supervision of normal . TECHNIQUE: Real time grayscale imaging of the fetus was performed. Evaluate anatomy. Transabdominal imaging performed. position: Vertex. Cervix: Visualized. Technique: Transabdominal. Length of closed cervix: 4.3 cm. Placenta/cord: Anterior. Technique: Transabdominal. Placenta tip to internal OS: 7.0 cm. Umbilical Cord: 3-vessel cord. Placenta insertion: Central. Amniotic Fluid: 4.8 cm SDP (greater than/equal to: 2- less than 8 cm). SURVEY: Observed Structures. Calvarium/Spine: Cerebellum: 2.2 cm, 21 w 4 d. Cisterna Magna: 3.5 mm. Nuchal Fold: 5.0 mm. Lateral Ventricle: 7.0 mm. CSP: Yes. Midline Falx: Yes. Choroid Plexus: Yes. Spine: Yes. Abdomen: Stomach: Yes. Abd Cord Insertion: Yes. Urinary Bladder: Yes. Kidneys: Yes. Diaphragm: Yes. Face: Nose/lips: Yes. Orbital view: Yes. Profile: Yes. Limbs: Upper Extremities: Yes. Lower Extremities: Yes. Hands: Yes. Feet: Yes. Vascular: 4-Chamber Heart: Yes. LVOT: Yes. RVOT: Yes. 3VV: Yes. 3VTV: Yes. BPD: 4.9 cm. 20 w, 6 d, 79%. HC: 18.0 cm. 20 w, 3 d, 55%. AC: 15.5 cm. 20 w, 5 d, 62%. FL: 3.3 cm. 20 w, 2 d, 46%. FL/AC ratio: 21.17%. HC/AC ratio: 1.16. heart rate: 138 bpm. age by this US: 20 w, 5 d. KRISTIAN by this US: 05/05/2025. EFW: 356.95g. Weight: 13 oz. Percentile by KRISTIAN: 65%. IMPRESSION: 1. Concordance of clinical and sonographic dating. 2. Normal anatomic survey. Yuval Orozco M.D. Diagnostic Radiologist [email or web address] JAK/jana jj/Dictated by: Yuval Orozco MD @ 12/22/2024 6:25:00 AM (Electronically Signed)
== END 2024-12-21 12:55 | disposition home or self-care (01) ==
LOC: US 12:55
PROVIDERS: Visit Provider Midwife
DX: Z34.92 Encounter for supervision of normal pregnancy, unspecified, second trimester (principal); Z3A.20 20 weeks gestation of pregnancy
CPT/HCPCS: 76805

== ENCOUNTER 2025-02-14 09:35 | Outpatient (CLI) | payer BC, SELFPAY | END 2025-02-14 09:36 | disposition home or self-care (01) | LOC: NFLDREF 09:36 | PROVIDERS: Visit Provider Advanced Practice Midwife | DX: O26.893 Other specified pregnancy related conditions, third trimester (principal); Z67.91 Unspecified blood type, Rh negative | CPT/HCPCS: 86592; 86850; J2791 ==

== ENCOUNTER 2025-02-14 09:41 | Outpatient (CLI) | payer BC, SELFPAY ==
[2025-02-14 10:06] VITALS: PULSE 100; O2SAT 97
[2025-02-14 10:11] VITALS: PULSE 92; RESP 16; TEMP 37.2; O2SAT 97
[2025-02-14 10:16] VITALS: BP 130/85; PULSE 121
[2025-02-14 10:26] VITALS: BP 132/79; PULSE 104
[2025-02-14 10:42] VITALS: BP 121/79; PULSE 111
[2025-02-14 10:57] VITALS: BP 120/71; PULSE 95
--- NOTE | 2025-02-14 11:47 | PC.OBNST ---
NST Note NST Note Start: 02/14/25 10:03 Freq: ONCE Status: Active Protocol: Document 02/14/25 11:25 KST (Rec: 02/14/25 11:47 KST [id number]) NST Note 3 Para (# of births) 2 EDC 05/09/25 Gestational Age In 28 Weeks & 0 Days Weeks & Days Patient Presented Other with Complaint(s) of Other Complaints Patient sent from clinic to monitor BP. Appropriate for Yes Gestational Age JESSIKA Marte, RN Date 02/14/25 Appropriate for Yes Gestational Age JESSIKA Ayala RN Date 02/14/25 OB NST charge Yes Complete NST Note Yes via Write Note The provider's electronic signature indicates the NST is reactive/appropriate for gestational age. *Note to provider: If an addendum is required, open the patient's chart and click on the note under the Nurse/Allied Health tab.
== END 2025-02-14 11:25 | disposition home or self-care (01) ==
LOC: OB OUT 09:42 → OB 09:44
PROVIDERS: Visit Provider Advanced Practice Midwife
DX: O26.893 Other specified pregnancy related conditions, third trimester (principal); R03.0 Elevated blood-pressure reading, without diagnosis of hypertension; Z3A.28 28 weeks gestation of pregnancy
CPT/HCPCS: 59025; G0463